=== PATIENT | female | born 1945 | race Caucasian/White ===

== ENCOUNTER 2019-09-29 17:01 | Emergency (ER) | payer MEDICAID, OTHER ==
[~2019-09-29] VITALS: Ht 157.5 cm; Wt 64.0 kg
[2019-09-29] MEDS ORDERED: ACETAMINOPHEN 500MG TABLET PO ONE (21:45)
[2019-09-29] MEDS ORDERED: SULFAMETHOXAZOLE/TRIMETHOPRIM 800/160MG TABLET PO ONE (21:45)
[2019-09-29] MEDS ORDERED: CEPHALEXIN 250MG CAPSULE PO ONE (21:45)
[2019-09-29] MEDS ORDERED: LIDOCAINE HCL 1% 20ML VIAL (Pyxis) INJ INFIL ONE (21:45)
[2019-09-29] MEDS ORDERED: BACITRACIN ZINC OINT UDPKT TOP ONE (22:00)
[2019-09-30 00:06] VITALS: BP 119/53
== END 2019-09-30 00:16 | disposition home or self-care (01) ==
LOC: ER 17:01
DX: L60.0 Ingrowing nail (principal); L03.116 Cellulitis of left lower limb; E11.9 Type 2 diabetes mellitus without complications; E78.00 Pure hypercholesterolemia, unspecified; I11.9 Hypertensive heart disease without heart failure; Z98.49 Cataract extraction status, unspecified eye
CPT/HCPCS: 11730; 99284; J3490; Z7610

== ENCOUNTER 2020-01-19 10:11 | Emergency (ER) | payer OTHER ==
[~2020-01-19] VITALS: Ht 162.6 cm; Wt 78.0 kg
[2020-01-19 14:21] LABS: CLARITY URINE TURBID (CLEAR); COLOR URINE YELLOW (YELLOW); KETONES URINE NEGATIVE (NEGATIVE); LEUKOCYTE ESTERASE URINE 3+ (NEGATIVE); NITRITE URINE NEGATIVE (NEGATIVE); OCCULT BLOOD URINE 1+ (NEGATIVE); PROTEIN URINE 1+ (NEGATIVE); SPECIFIC GRAVITY URINE 1.009 (1.005-1.030); UROBILINOGEN URINE 0.2 E.U./dL (0.2-1.0)
[2020-01-19 15:17] LABS: BASOPHILS % 0.2 % (0.0-2.0); EOSINOPHILS % 0.6 % (0.0-5.0); HEMOGLOBIN. 13.1 g/dL (12.0-16.0); MEAN CORPUSCULAR HEMOGLOBIN 29.2 pg (28.0-32.0); MEAN PLATELET VOLUME 8.5 fl (7.4-10.4); MONOCYTES % 3.8 % (2.0-8.0); NEUTROPHILS % 71.4 % (40.0-76.0); PLATELET 280 x1000/uL (130-400); RED BLOOD CELL COUNT 4.49 mill/uL (4.2-5.4); RED CELL DISTRIBUTION WIDTH 16.4 % (11.6-14.6)
[2020-01-19 15:23] LABS: CHLORIDE 105 mEq/L (98-107)
[2020-01-19 16:42] VITALS: BP 151/64
== END 2020-01-19 16:45 | disposition home or self-care (01) ==
LOC: ER 10:11
DX: I16.0 Hypertensive urgency (principal); N30.00 Acute cystitis without hematuria; I11.9 Hypertensive heart disease without heart failure; E11.9 Type 2 diabetes mellitus without complications; E78.00 Pure hypercholesterolemia, unspecified; Z98.890 Other specified postprocedural states
CPT/HCPCS: 36415; 80053; 81003; 85025; 87077; 87186; 93005; 99284